=== PATIENT | female | born 1970 | race Caucasian/White ===

== ENCOUNTER 2018-06-05 10:58 | Outpatient (CLI) | payer OTHER ==
--- NOTE | 2018-06-05 11:45 | MMO ---
BILATERAL SCREENING MAMMOGRAMS: Date: 06/05/18 HISTORY: 47-year-old female patient presenting for screening mammography. This patient's mammogram was interpreted with the assistance of computer-aided detection. COMPARISON: 05/30/17, 12/20/15, 06/09/14, 06/12/11. FINDINGS: There is a heterogeneously dense parenchymal pattern, which may lower the sensitivity of mammography. Punctate, benign-appearing calcifications are again seen in each breast. No dominant mass or suspici ous grouping of microcalcifications are seen in either breast. IMPRESSION: BIRADS 2: Benign Finding(s) Routine annual mammographic screening is recommended. POS: [facility]
== END 2018-06-05 10:59 | disposition home or self-care (01) ==
LOC: SCSMAMMO 10:58
PROVIDERS: ATTEND Obstetrics & Gynecology
DX: Z12.31 Encounter for screening mammogram for malignant neoplasm of breast (principal)
CPT/HCPCS: 77067

== ENCOUNTER 2020-07-05 08:40 | Outpatient (CLI) | payer OTHER ==
--- NOTE | 2020-07-05 10:27 | MRI ---
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 COMPARISON: 04/25/2020, 03/16/2010 FINDINGS: Appropriate T1 marrow signal intensity of the cervical vertebra. Cervical spine vertebral body heigh ts are maintained. No fracture. No significant STIR hyperintensity to suggest vertebral body edema or ligamentous injury. Stable straightening of cervical lordosis. Visualized brain parenchyma, cervicomedullary junction, cervical cord and the upper thoracic cord hav e a normal size and signal intensity Incompletely evaluated T2 hyperintense lesions in the thyroid gland. C2-C3: Stable left paracentral disc osteophyte complex. No significant central canal stenosis. Patent right neural foramen. Mild left neural foraminal narrowing. C3-C4: Broad-based disc osteophyte complex abuts the thecal sac. No significant central canal stenosi s. Mild to moderate bilateral neural foraminal narrowing due to uncovertebral hypertrophy. The degree of foraminal stenosis is unchanged. C4-C5: Broad-based disc osteophyte complex abuts the thecal sac. Subarachnoid space is effaced ventra lly. There is mild contact upon the midline cervical cord, without cord signal abnormality. Mild central canal stenosis. Mild bilateral foraminal narrowing predominantly due to uncovertebral hypertr ophy. The degree of central canal stenosis and neural foraminal narrowing is unchanged. C5-C6: There is a broad-based disc bulge with a central/right paracentral disc osteophyte complex. Th ere is contact upon the ventral thecal sac. Subarachnoid space is effaced. There is mild mass effect upon the ventral cord, without cord signal abnormality. Mild central canal stenosis. Patent bi lateral neural foramina. C6-C7: Broad-based disc osteophyte complex with a central disc herniation and associated annular fiss ure. There is mass effect upon the midline cervical cord. Mild to moderate central canal stenosis. Stable deformity of the cervical cord. No signal abnormality. Moderate to severe right neural foramin al narrowing. Patent left neural foramen. C7-T1: No significant central canal stenosis or significant neural foraminal narrowing. IMPRESSION: 1. Multilevel degenerative changes of the cervical spine as described above. 2. When compared to most recent previous examination, no appreciable change. 3. Incompletely evaluated T2 hyperintense lesion in the thyroid gland. Nonemergent thyroid ultrasound is recommended CODE T Transcribed Date/Time: 07/05/2020 10:35 AM
--- NOTE | 2020-07-05 10:55 | MRI ---
Exam: Thoracic spine MRI without contrast HISTORY: Recent epidural for neck pain. Patient now having bilateral leg weakness. COMPARISON: None. FINDINGS: Appropriate T1 marrow signal intensity of the thoracic vertebra. Thoracic spine vertebral body height is maintained. No fracture. No significant STIR hyperintensity to suggest vertebral body edema or ligamentous injury. Visualized mediastinum, lung parenchyma and solid organs have appropriate size and signal intensity. The thoracic cord has a normal size and signal intensity. No cord malacia. No cord expansion. Conus m edullaris terminates at the inferior aspect of T12. Throughout the thoracic spine, the neural foramina are patent. T3-T4: Broad-based disc bulge with mild mass effect upon the right thecal sac and right hemicord. Mil d central canal stenosis. No cord signal abnormality. T6-T7: Broad-based disc bulge. Mild flattening of the thecal sac. No significant central canal stenos is. T7-T8: Small left paracentral disc bulge. Mild central canal stenosis. Patent bilateral neural forami na. T8-T9 broad-based disc bulge with a small right paracentral component. Mild central canal stenosis. P atent bilateral neural foramina. T9-T10: Mild central canal stenosis due to broad-based disc bulge. IMPRESSION: Mild multilevel degenerative changes throughout the thoracic spine. No cord signal abnormality. Mani olson neural foramina. Transcribed Date/Time: 07/05/2020 11:40 AM
--- NOTE | 2020-07-05 10:59 | MRI ---
MRI lumbar spine noncontrast: HISTORY: Recent epidural with neck pain. Now having bilateral leg weakness. COMPARISON: None. FINDINGS: Appropriate T1 marrow signal intensity of the lumbar vertebra. Lumbar spine vertebral body height is maintained. No fracture. No significant STIR hyperintensity to suggest ligamentous injury or vertebral body edema. Appropriate signal intensity of the visualized paraspinal muscles and solid organs. Conus medullaris terminates at the inferior aspect of T12. T12-L1:Adequate disc hydration. No posterior disc abnormality. No significant central canal stenosis or significant neural foraminal narrowing. L1-L2:Adequate disc hydration. No posterior disc abnormality. No significant central canal stenosis o r significant neural foraminal narrowing. L2-L3:Adequate disc hydration. No posterior disc abnormality. Mild ligamentum flavum thickening and f acet hypertrophy are present. Small amount of fluid in both facet joints. No significant central canal stenosis or significant neural foraminal narrowing. L3-L4:Adequate disc hydration. Minimal left and right paracentral disc bulge. Mild ligamentum flavum thickening and facet hypertrophy. There is fluid in both facet joints. Mild central canal stenosis. Patent bilateral neural foramina. L4-L5:Adequate disc hydration. No significant loss of disc space height. Broad-based disc bulge abuts the thecal sac. There is no significant central canal stenosis. There is ligamentum flavum thickening and facet hypertrophy. There is fluid in both facet joints. Mild to moderate right and mil d left neural foraminal narrowing. L5-S1:Adequate disc hydration. No posterior disc abnormality. No significant central canal stenosis. There is bilateral facet hypertrophy with fluid in both facet joints. Mild bilateral neural foraminal narrowing. 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 IMPRESSION: 1. No significant central canal stenosis or significant neural foraminal narrowing. 2. No abnormal signal intensity of the cauda equina or conus medullaris. Transcribed Date/Time: 07/05/2020 11:45 AM
== END 2020-07-05 08:41 | disposition home or self-care (01) ==
LOC: TBSIIMAG 08:40
PROVIDERS: ATTEND Psychiatry & Neurology Neurology
DX: G99.2 Myelopathy in diseases classified elsewhere (principal); M47.814 Spondylosis without myelopathy or radiculopathy, thoracic region; M47.812 Spondylosis without myelopathy or radiculopathy, cervical region
CPT/HCPCS: 72141; 72146; 72148

== ENCOUNTER 2020-07-25 09:08 | Outpatient (CLI) | payer OTHER ==
[2020-07-25] MEDS ORDERED: Magnevist 469MG/ML 20 ML VIAL ONE (09:16)
--- NOTE | 2020-07-25 11:22 | MRI ---
MRI BRAIN WITH AND WITHOUT CONTRAST: INDICATION: Headache. Tremor. FINDINGS: Ventricles have normal size and position. No evidence of restricted diffusion. No evidence of mass or edema. No evidence of white matter abnormality. No abnormal enhancement. The intracranial internal carotid arteries, cerebral arteries, basilar artery, and dural venous sinus es appear patent. Paranasal sinuses and mastoids appear clear. Orbits appear unremarkable. IMPRESSION: Unremarkable MRI of brain. POS: [facility]
== END 2020-07-25 09:09 | disposition home or self-care (01) ==
LOC: TBSIIMAG 09:08
PROVIDERS: ATTEND Psychiatry & Neurology Neurology
DX: R51.9 Headache, unspecified (principal)
CPT/HCPCS: 70553; A9579

== ENCOUNTER → 2021-06-21 | Outpatient (CLI) | payer OTHER ==
[~2021-06-21] MED LIST: Magnevist 469MG/ML 20 ML VIAL ONE
== END ==
LOC: TBSIIMAG 15:00
PROVIDERS: ATTEND Orthopaedic Surgery Hand Surgery
DX: R22.31 Localized swelling, mass and lump, right upper limb (principal)
CPT/HCPCS: A9579

== ENCOUNTER 2021-06-28 10:51 | Outpatient (CLI) | payer OTHER ==
[2021-06-28 11:45] LABS: #Eosinphils 0.1 10x3/uL (0.0-0.5); #Monocytes 0.4 10x3/uL (0.0-1.1); #Neutrophils 3.8 10x3/uL (1.5-8.4); %Basophils 0.5 % (0.0-2.0); %Eosinophils 2.2 % (0.0-6.0); %Lymphocytes 20.4 % (18.0-47.0); %Neutrophils 68.2 % (40.0-75.0); Hemoglobin 13.2 g/dL (12.0-15.5); Mean Corpuscular HGB CONC 33.7 g/dL (32.0-36.0); Mean Corpuscular Hemoglobin 32.6 pg (27.0-33.0); Mean Corpuscular Volume 96.8 fl (81.6-98.3); Mean Platelet Volume 10.5 fl (7.4-10.4); Platelet Count 211 10x3/uL (150-450); RBC Distribution Width 11.5 % (11.5-14.5); Red Blood Cell (RBC) Count 4.05 10x6/uL (3.90-5.03); White Blood Cell (WBC) Count 5.5 10x3/uL (3.5-10.5)
[2021-06-28 22:21] LABS: SARS-CoV-2 PCR by NAA Not Detected (NotDetected)
== END 2021-06-28 10:52 | disposition home or self-care (01) ==
LOC: LABBT 10:51
PROVIDERS: ATTEND Orthopaedic Surgery Hand Surgery
DX: Z01.812 Encounter for preprocedural laboratory examination (principal); M65.241 Calcific tendinitis, right hand; Z20.822 Contact with and (suspected) exposure to COVID-19
CPT/HCPCS: 85025; U0003; U0005

== ENCOUNTER 2021-06-30 06:11 | Day surgery (SDC) | payer OTHER ==
[2021-06-28 13:57] VITALS: BMI 25.8
[2021-06-30] MEDS ORDERED: ceFAZolin 2 GM/DEX 5% 100 ML BAG ONE (06:40)
[2021-06-30] MEDS ORDERED: Bacitracin Zinc Ointment 30 gm TUBE ONE (06:45)
[2021-06-30] MEDS ORDERED: Bupivacaine PF 0.5% 30 ML VIAL ONE (06:45)
[2021-06-30] MEDS ORDERED: Thrombin 5000 UNITS/5 ML VIAL ONE (06:45)
[2021-06-30] MEDS ORDERED: Fentanyl 100 MCG/2 ML VIAL ONE (06:57)
[2021-06-30] MEDS ORDERED: Midazolam HCl 2 mg/2 ml Vial ONE (06:57)
[2021-06-30] MEDS ORDERED: Ondansetron PF 4 MG/2 ML Vial ONE (07:09)
[2021-06-30] MEDS ORDERED: Bupivacaine HCl 0.5%/Epinephrine 1:200,000/PF 30 ml Vial ONE (07:09)
[2021-06-30] MEDS ORDERED: Ketorolac Tromethamine 30 MG/ML VIAL ONE (07:09)
[2021-06-30] MEDS ORDERED: Dexamethasone 20 MG/5 ML VIAL ONE (07:09)
[2021-06-30] MEDS ORDERED: PROPOFOL 200 MG/20 ML VIAL ONE (07:09)
[2021-06-30] MEDS ORDERED: PROPOFOL 20 ML ONE (07:10)
== END 2021-06-30 10:33 | disposition home or self-care (01) ==
LOC: SDC 06:11
PROVIDERS: ATTEND Orthopaedic Surgery Hand Surgery
PROC: 0RBU0ZZ Excision of Right Metacarpophalangeal Joint, Open Approach (ICD-10-PCS; principal; 2021-06-30)
DX: M1A.0411 Idiopathic chronic gout, right hand, with tophus (tophi) (principal); M65.241 Calcific tendinitis, right hand; D34 Benign neoplasm of thyroid gland; Z88.0 Allergy status to penicillin
CPT/HCPCS: 76000; 88305; 89060; J1100; J1885; J2250; J2405; J2704; J3010; S0020

== ENCOUNTER 2021-07-21 08:33 | Outpatient (CLI) | payer OTHER | END 2021-07-21 08:34 | disposition home or self-care (01) | LOC: RAD 08:33 | PROVIDERS: ATTEND Internal Medicine Critical Care Medicine | DX: R06.00 Dyspnea, unspecified (principal) | CPT/HCPCS: 71046 ==